=== PATIENT | female | born 1940 | race Two or more races ===

== ENCOUNTER 2017-02-13 14:00 | Emergency (ER) | payer OTHER ==
[2017-02-13 14:59] LABS: CALCIUM 9.2 mg/dL (8.5-10.1); CARBON DIOXIDE 29.7 mmol/L (21-32); CHLORIDE SERUM 100 mmol/L (98-107); CREATININE SERUM 1.5 mg/dL (0.6-1.0); GLUCOSE SERUM 90 mg/dL (74-106); POTASSIUM SERUM 4.4 mmol/L (3.5-5.1); SODIUM SERUM 138 mmol/L (136-145)
[2017-02-13 15:02] LABS: BASOPHIL % 0.5 % (0-2); PLATELET COUNT 287 x10^3mcL (130-400)
[2017-02-13 15:03] LABS: ALKALINE PHOSPHATASE 83 U/L (46-116); ALT/SGPT 19 U/L (14-59); AST/SGOT 11 U/L (15-37); BILIRUBIN TOTAL 0.4 mg/dL (0.20-1.00); CHOLESTEROL 171 mg/dL (<200); HDL CHOLESTEROL 43 mg/dL (40-60); PHOSPHOROUS 4.2 mg/dL (2.5-4.9); TOTAL PROTEIN, SERUM 6.9 g/dL (6.4-8.2); URIC ACID 5.9 mg/dL (2.6-6.0)
[2017-02-13 15:06] LABS: ALBUMIN 3.3 g/dL (3.4-5.0)
[2017-02-13 15:08] LABS: RED CELL DISTRIBUTION WIDTH 15.2 % (11.5-14.5)
[2017-02-13 15:17] LABS: microscopic required? NO
[2017-02-13 15:53] LABS: UA SPECIFIC GRAVITY 1.005 (1.005-1.035)
[2017-02-13 15:54] LABS: urine erythrocyte NEGATIVE (NEGATIVE)
[2017-02-13 18:25] VITALS: BP 121/78
== END 2017-02-13 18:25 | disposition home or self-care (01) ==
LOC: ED 14:00
PROVIDERS: Emergency Medicine
DX: D50.9 Iron deficiency anemia, unspecified (principal); I10 Essential (primary) hypertension; K59.00 Constipation, unspecified
CPT/HCPCS: 83880; J1885; J2550